=== PATIENT | female | born 1975 | race African-American/Black ===

== ENCOUNTER 2017-07-24 08:13 | Emergency (ER) | payer OTHER ==
[~2017-07-24] VITALS: Ht 170.2 cm; Wt 90.9 kg
[2017-07-24] MEDS ORDERED: INSLAN SQ (08:21)
[2017-07-24] MEDS ORDERED: LIRA0.6P SQ (08:21)
[2017-07-24 08:27] LABS: GLUCOSE,POINT OF CARE 224 MG/DL (70-110)
[2017-07-24] MEDS ORDERED: BENZOCAINE/MENTHOL LOZENGE [8 LOZENGES/PACKET] PO ONE (10:45)
[2017-07-24] MEDS ORDERED: ACETAMINOPHEN 500 MG TABLET PO ONE (10:45)
[2017-07-24] MEDS ORDERED: MAALOX/LIDOCAINE/NYSTATIN SUSP 5 ML ORAL.SYG PO ONE (10:45)
[2017-07-24 11:44] VITALS: BP 119/69
== END 2017-07-24 11:46 | disposition home or self-care (01) ==
LOC: EMS 08:15
DX: J02.8 Acute pharyngitis due to other specified organisms (principal); B97.89 Other viral agents as the cause of diseases classified elsewhere
CPT/HCPCS: 82962; 87430; 99283